=== PATIENT | female | born 1945 | race African-American/Black ===

== ENCOUNTER 2019-01-23 23:21 | Emergency (ER) | payer OTHER ==
[~2019-01-23] VITALS: Ht 154.9 cm; Wt 76.2 kg
[~2019-01-23 23:21] MED LIST: ASPIRIN EC81 M1; B COMPLEX-VITA1 EACH; BENADRYL25 MG PO; CLARITIN10 MG PO; GLIPIZIDE ER2.5 MG; HCTZ; IBUPROFEN 600600 M1 PO; LEVEMIR SQ; LIDODERM 5%1 PATCH; METFORMIN; NOVOLOG100 UNIT/1; PREDNISONE 20 M20 MG PO; PREDNISONE50 MG PO; ZANTAC 150MG T150 M1 PO
[2019-01-24] MEDS ORDERED: PREDNISONE 20 M20 M1 PO (00:52)
[2019-01-24 01:23] VITALS: BP 146/64
== END 2019-01-24 02:15 | disposition home or self-care (01) ==
LOC: ER 23:21
DX: L53.9 Erythematous condition, unspecified (principal); I10 Essential (primary) hypertension; E11.9 Type 2 diabetes mellitus without complications; Z88.5 Allergy status to narcotic agent; Z88.0 Allergy status to penicillin; Z88.8 Allergy status to other drugs, medicaments and biological substances; Z79.4 Long term (current) use of insulin